=== PATIENT | male | born 1985 | race Two or more races ===

== ENCOUNTER 2021-02-26 09:08 | Emergency (ER) | payer SELFPAY ==
[~2021-02-26] VITALS: Ht 185.4 cm; Wt 77.6 kg
--- NOTE | 2021-02-26 10:02 | PHYS DOC ---
Past History Past Surgical History: No Surgical History Alcohol Use: Occasionally General Adult EDM: Chief Complaint: LOWER EXT PAIN HPI: HPI: Patient is a 36-year-old male coming in for right low back and right lower leg and ankle pain. Patient states that 2 months ago he fell through a rounded floor and landed on his right side. States he has been taking Aleve for the p ast 2 months has not been seen by her primary care provider. He states a few days ago he was up on his roof to replace some shingles with success. The pain. States he has a history of sciatica that comes and goes and is usually relieved after a couple of weeks but this is not going away this time. Review of Systems: Review of Systems: All other systems within normal limits except for as noted in the HPI Allergies: Allergies: Allergies Coded Allergies Type Severity Reaction Last Updated Verified No Known Drug Allergies 02/26/21 No Physical Exam: PE: Constitutional: Well developed, well nourished, no acute distress, non-toxic appearance. [] HENT: Normocephalic, atraumatic, bilateral external ears normal, nose normal. [] Eyes: PERRLA, conjunctiva normal, no discharge. [] Neck: No rigidity, supple, no stridor. [] Cardiovascular: Regular rate and rhythm, brisk cap refill [] Lungs & Thorax: Non labored symmetric respirations, no tachypnea or respiratory distress [] Abdomen: Soft, nondistended. Skin: Warm, dry, no erythema, no rash. [] Back: Unremarkable Extremities: No deformities, range of motion grossly intact, no lower extremity edema [] Neurologic: Alert and oriented X 3, no focal deficits noted. [] Psychologic: Affect normal, judgement normal, mood normal. [] Current Patient Data: Vital Signs: Vital Signs Date Time Temp Pulse Resp B/P (MAP) Pulse Ox O2 Delivery O2 Flow Rate FiO2 02/26/21 09:46 98.1 75 20 162/104 (123) 100 Room Air EKG: EKG: [] Radiology/Procedures: Radiology/Procedures: [address] [address] IMAGING REPORT Signed PATIENT: LATESHA GARCES ACCOUNT: [id number] : 1985 LOCATION: ER AGE: 36 SEX: M EXAM STATUS: REG ER ORD. PHYSICIAN: ALAN VERDE MD REASON: FALL TWO MONTHS AGO PROCEDURE: TIBIA FIBULA RIGHT XR LUMBAR SPINE 2-3V, XR RT TIBIA+FIBULA , XR EXAM OF ANKLE_RIGHT 3VIEWS Clinical indications: Reason: FALL TWO MONTHS AGO and pain. Right ankle: No acute fracture or dislocation or osteolytic process is evident. The mortise ankle joint is intact. Right tibia/fibula: No acute fracture or lytic process is seen. Lumbar spine: No compression fracture or discitis or lytic process or anterolisthesis is evident. There is mild degenerative endplate spurring and disc space narrowing at L5-S1. IMPRESSION: No acute osseous abnormality is evident. Electronically signed by: Jairo Brito MD (02/26/2021 10:55 AM) [id number] DICTATED AND SIGNED BY: JAIRO BRITO MD DATE: 02/26/21 1048 CC: ALAN VERDE MD; PCP,NO ~MTH0 0 [] Heart Score: C/O Chest Pain: No Risk Factors: Risk Factors: DM, Current or recent (<one month) smoker, HTN, HLP, family history of CAD, obesity. Risk Scores: Score 0 - 3: 2.5% MACE over next 6 weeks - Discharge Home Score 4 - 6: 20.3% MACE over next 6 weeks - Admit for Clinical Observation Score 7 - 10: 72.7% MACE over next 6 weeks - Early Invasive Strategies Course & Med Decision Making: Course & Med Decision Making Pertinent Labs and Imaging studies reviewed. (See chart for details) [] Dragon Disclaimer: Dragon Disclaimer: This electronic medical record was generated, in whole or in part, using a voice recognition dictation system. Departure Departure: Impression: Primary Impression: Right leg pain Disposition: HOME / SELF CARE / HOMELESS Condition: STABLE Referrals: PCP,NO (PCP) Patient Instructions: Back Injury Prevention Scripts Acetaminophen With Codeine (ACETAMINOPHEN-COD #3 TABLET) 1 Each Tablet 1 TAB PO PRN Q6HRS PRN for PAIN for 3 Days, #10 TAB Prov: ALAN VERDE MD 02/26/21 ALAN VERDE MD Feb 26, 2021 10:02
[2021-02-26] MEDS: HYDROcodone/APAP 5/325MG 1 TAB TABLET PO ONE (10:35)
--- NOTE | 2021-02-26 10:57 | RAD ---
XR LUMBAR SPINE 2-3V, XR RT TIBIA+FIBULA , XR EXAM OF ANKLE_RIGHT 3VIEWS Clinical indications: Reason: FALL TWO MONTHS AGO and pain. Right ankle: No acute fracture or dislocation or osteolytic process is evident. The mortise ankle dustin nt is intact. Right tibia/fibula: No acute fracture or lytic process is seen. Lumbar spine: No compression fracture or discitis or lytic process or anterolisthesis is evident. The re is mild degenerative endplate spurring and disc space narrowing at L5-S1. IMPRESSION: No acute osseous abnormality is evident. Electronically signed by: David Briot MD (02/26/2021 10:55 AM) [id number]
[2021-02-26] MEDS ORDERED: ACET1TAB33 PO (11:25)
[2021-02-26 11:40] VITALS: BP 147/81
== END 2021-02-26 11:41 | disposition home or self-care (01) ==
LOC: ER 09:08
DX: M25.571 Pain in right ankle and joints of right foot (principal); M79.661 Pain in right lower leg
CPT/HCPCS: 72100; 73590; 73610; 99284